=== PATIENT | female | born 1960 | race American Indian/Alaskan Native ===

== ENCOUNTER 2018-01-06 11:37 | Emergency (ER) | payer BC ==
[2018-01-06 11:38] VITALS: BMI 28.1
--- NOTE | 2018-01-06 13:08 | RAD ---
Date of service: 01/06/2018 PROCEDURE: Right Foot Radiographs. HISTORY: 1st toe/foot pain r/o fx COMPARISON: None. FINDINGS: BONES: Normal. No fracture. JOINTS: Narrowing of the MTP 1 joint with subchondral sclerosis consistent with osteoarthritis. Remaining joint spaces and articular surfaces are preserved. There are no articular erosions. SOFT TISSUES: Normal. OTHER FINDINGS: None. IMPRESSION: Osteoarthritis at MTP 1.
--- NOTE | 2018-01-06 13:10 | ED PDOC ---
Arrival/HPI - General Chief Complaint: Lower Extremity Problem/Injury Time Seen by Provider: 01/06/18 11:49 Historian: Patient - History of Present Illness Narrative History of Present Illness (Text): 01/06/18 13:07 A 57 year old female presents to the emergency department with a complaint of right foot pain. Patient notes that she has been experiencing this pain for the past 2 days. She notes that she can walk, but cannot bend her toes. She states that she fel a few weeks ago, but is unsure if that was the cause of her pain. The patient denies fevers, chills, headache, dizziness, sore throat, cough, chest pain, shortness of breath, dyspnea on exertion, abdominal pain, nausea, vomiting, diarrhea, neck/back pain, urinary/bowel changes or any other complaint. Time/Duration: Other (2 days) Symptom Onset: Sudden Symptom Course: Unchanged Activities at Onset: Rest, Light Context: Home Past Medical History - Provider Review Nursing Documentation Reviewed: Yes - Infectious Disease Hx of Infectious Diseases: None - Reproductive Menopause: Yes - Cardiac Hx Cardiac Disorders: Yes Hx Hypertension: Yes - Pulmonary Hx Respiratory Disorders: No - Neurological Hx Neurological Disorder: No - HEENT Hx HEENT Disorder: No - Renal Hx Renal Disorder: No - Endocrine/Metabolic Hx Endocrine Disorders: No - Hematological/Oncological Hx Blood Disorders: No - Integumentary Hx Dermatological Disorder: No - Musculoskeletal/Rheumatological Hx Musculoskeletal Disorders: No Hx Falls: No - Gastrointestinal Hx Gastrointestinal Disorders: Yes Hx Gastroesophageal Reflux: Yes - Genitourinary/Gynecological Hx Genitourinary Disorders: No - Psychiatric Hx Psychophysiologic Disorder: No Hx Substance Use: No - Past Surgical History Past Surgical History: No Previous - Anesthesia Hx Anesthesia: Yes Hx Anesthesia Reactions: No Hx Malignant Hyperthermia: No - Suicidal Assessment Feels Threatened In Home Enviroment: No Family/Social History - Physician Review Nursing Documentation Reviewed: Yes Family/Social History: No Known Family HX Smoking Status: Never Smoked Hx Alcohol Use: Yes (1/2 pint everyday) Hx Substance Use: No Allergies/Home Meds Allergies/Adverse Reactions: Allergies No Known Allergies Allergy (Verified 04/23/14 17:15) Home Medications: Home Meds Medication Instructions Recorded Confirmed Dexlansoprazole [Dexilant] 1 tab PO DAILY 04/26/14 04/26/14 Folic Acid 1 tab PO DAILY 04/26/14 04/26/14 Nebivolol [Bystolic] 1 tab PO DAILY 04/26/14 04/26/14 Rosuvastatin Calcium [Crestor] 1 tab PO DAILY 04/26/14 04/26/14 Valsartan 1 tab PO DAILY 04/26/14 04/26/14 Review of Systems - Physician Review All systems were reviewed & negative as marked: Yes - Review of Systems Constitutional: absent: Fevers ENT: absent: Sore Throat Respiratory: absent: SOB, Cough Cardiovascular: absent: Chest Pain, GUZM[place]N Gastrointestinal: absent: Abdominal Pain, Stool Changes, Diarrhea, Nausea, Vomiting Genitourinary Female: absent: Urine Output Changes Musculoskeletal: Other (Right foot pain.). absent: Back Pain, Neck Pain Neurological: absent: Headache, Dizziness Physical Exam Vital Signs Reviewed: Yes Vital Signs Temp Pulse Resp Pulse Ox 01/06/18 11:58 98.4 F 85 19 98 Temperature: Afebrile Blood Pressure: Normal Pulse: Regular Respiratory Rate: Normal Appearance: Positive for: Well-Appearing, Non-Toxic, Comfortable Pain Distress: None Mental Status: Positive for: Alert and Oriented X 3 - Systems Exam Lower Extremity: Present: Normal Inspection, Normal ROM, Tenderness (Right foot: tenderness to the 1st toe.), Neurovascularly Intact. No: Edema Medical Decision Making ED Course and Treatment: 01/06/18 13:09 Impression: 57 year old female presents to the emergency department with a complaint of 2 day duration right foot pain. Plan: -- Right Foot X- Ray -- Ibuprofen -- Reassess and disposition Prior Visits: Notes and results from previous visits were reviewed. Progress Notes: PROCEDURE: Right Foot Radiographs. Dictator : Hunter Wang MD Report Date : 01/06/2018 13:05:05 IMPRESSION: Osteoarthritis at MTP 1. 01/06/18 13:16 On reevaluation the patient is in no acute distress. I have discussed the results and plan with the patient, who expresses understanding. Patient given the opportunity to ask question, all questions were answered and there is agreement with the plan to discharge the patient home. Patient is stable for discharge. Patient was instructed to follow up with physician/clinic in 1-2 days or return if symptoms persist/worsen or new concerning symptoms arise. - RAD Interpretation Radiology Orders: 01/06/18 12:42 FOOT RIGHT 3 VIEWS ROUTINE [RAD] Stat - Medication Orders Current Medication Orders: Discontinued Medications Ibuprofen (Motrin Tab) 600 mg PO STAT STA Stop: 01/06/18 12:43 - Scribe Statement The provider has reviewed the documentation as recorded by the Maylin Nielsen Provider Scribe Attestation: All medical record entries made by the Scribe were at my direction and personally dictated by me. I have reviewed the chart and agree that the record accurately reflects my personal performance of the history, physical exam, medical decision making, and the department course for this patient. I have also personally directed, reviewed, and agree with the discharge instructions and disposition. Disposition/Present on Arrival - Present on Arrival Any Indicators Present on Arrival: No History of DVT/PE: No History of Uncontrolled Diabetes: No Urinary Catheter: No History of Decub. Ulcer: No History Surgical Site Infection Following: None - Disposition Have Diagnosis and Disposition been Completed?: Yes Diagnosis: Toe pain, Osteoarthritis Disposition: HOME/ ROUTINE Disposition Time: 13:16 Patient Plan: Discharge Condition: GOOD Discharge Instructions (ExitCare): Osteoarthritis (DC) Additional Instructions: OZ BRANHAM, thank you for letting us take care of you today. Your provider was Juan Nice DO and you were treated for Osteoarthritis, Toe Pain. The emergency medical care you received today was directed at your acute symptoms. If you were prescribed any medication, please fill it and take as directed. It may take several days for your symptoms to resolve. Return to the Emergency Department if your symptoms worsen, do not improve, or if you have any other problems. Please contact your doctor or call one of the physicians/clinics you have been referred to that are listed on the Patient Visit Information form that is included in your discharge packet. Bring any paperwork you were given at discharge with you along with any medications you are taking to your follow up visit. Our treatment cannot replace ongoing medical care by a primary care provider outside of the emergency department. Thank you for allowing the [facility] team to be part of your care today. If you had an X-Ray or CT scan: A Radiologist will review the ED reading if any change in treatment is needed we will contact you. If you had a blood, urine, or wound culture: It will take several days for the results, if any change in treatment is needed we will contact you. If you had an STI test: It will take 48 hours for the results. Please call after 1 week if you have not heard back. Prescriptions: Ibuprofen [Motrin] 600 mg PO Q6 PRN #30 tab PRN Reason: Pain, Moderate (4-7) Referrals: Kalen Bass MD [Primary Care Provider] - Follow up with primary Forms: [facility] ([place]ron[place]), WORK NOTE
[2018-01-06 13:30] VITALS: BP 137/70; PULSE 84; RESP 18; TEMP 98.2; O2SAT 99
== END 2018-01-06 13:26 | disposition home or self-care (01) ==
LOC: ED 11:37
DX: M79.674 Pain in right toe(s) (principal); M19.071 Primary osteoarthritis, right ankle and foot